=== PATIENT | male | born 2000 | race Caucasian/White ===

== ENCOUNTER 2022-10-22 09:32 | Emergency (ER) | payer OTHER ==
[~2022-10-22] VITALS: Ht 172.7 cm; Wt 81.8 kg
[2022-10-22 09:39] VITALS: TEMP 98.2
[2022-10-22] MEDS ORDERED: IBUPROFEN 600 MG TABLET PO ONE (11:15)
[2022-10-22 14:18] VITALS: BP 123/68; PULSE 70; RESP 16
== END 2022-10-22 14:24 | disposition home or self-care (01) ==
LOC: EMS 09:41
DX: S33.5XXA Sprain of ligaments of lumbar spine, initial encounter (principal); S50.812A Abrasion of left forearm, initial encounter; M79.632 Pain in left forearm; V00.848A Other accident with standing micro-mobility pedestrian conveyance, initial encounter; Y93.89 Activity, other specified; Y92.89 Other specified places as the place of occurrence of the external cause; Y99.8 Other external cause status
CPT/HCPCS: 70450; 72125; 72131; 99285